=== PATIENT | female | born 1945 | race Caucasian/White ===

== ENCOUNTER 2021-08-31 13:53 | Inpatient (IN) ==
[2021-08-31 14:39] LABS: Hemoglobin 10.4 g/dL (11.5-15.4); Mean Platelet Volume 9.7 fL (9.4-12.4); Segmented Neutrophils % 75.9 %
[2021-08-31 14:40] LABS: Basophils % 0.3 %; Eosinophils # 0.3 K/mcL (0.0-0.6); Eosinophils % 2.5 %; Hematocrit 36.9 % (35.3-44.9); Immature Granulocytes % 0.7 % (0-4); Lymphocytes # 1.3 K/mcL (0.6-4.6); Lymphocytes % 12.9 %; Mean Corpuscular HGB Conc 28.2 g/dL (31.6-35.5); Mean Corpuscular Hemoglobin 27.7 pg (28.0-33.3); Mean Corpuscular Volume 98.1 fL (83.0-100.0); Monocytes # 0.8 K/mcL (0.0-1.3); Monocytes % 7.7 %; Neutrophils # 7.7 K/mcL (1.6-8.9); Platelet Count 230 K/mcL (140-400); Red Blood Count 3.76 M/mcL (3.82-4.97); Red Cell Distribution Width 13.6 % (11.5-14.5); White Blood Count 10.2 K/mcL (4.3-11.1)
[2021-08-31 14:41] LABS: VBG HCO3 26 mEq/L (21-27); VBG PCO2 79 mmHg (41-51); VBG PH 7.12 pH Units (7.32-7.42); VBG PO2 55 mmHg (25-50)
[2021-08-31 14:57] LABS: Platelet Estimate Normal (Normal)
[2021-08-31 15:02] LABS: BUN/Creatinine Ratio 17 (6-26); Blood Urea Nitrogen 28 mg/dL (8-23); Calcium 9.3 mg/dL (8.6-10.3); Carbon Dioxide 24 mEq/L (23-29); Chloride 108 mEq/L (98-107); Glucose 111 mg/dL (70-105); Osmolality,Calculated 294 (280-300); Potassium 5.1 mEq/L (3.5-5.1); Sodium 139 mEq/L (136-145); Troponin I < 0.03 ng/mL (< 0.04); eGFR For African Americans 37 (> 60); eGFR For Non-African Americans 31 (> 60)
[2021-08-31 15:53] LABS: Influenza A PCR Negative (Negative); Influenza B PCR Negative (Negative); Resp. Syncytial Virus PCR Negative (Negative)
[2021-08-31 16:21] LABS: SARS-CoV-2 by PCR (In House) Negative (Negative)
[2021-08-31] MEDS ORDERED: cefTRIAXone 1,000 MG in 0.9 % Sodium Chloride Mini Bag 100 ML IVPB ONE (16:30)
[2021-08-31] MEDS ORDERED: Azithromycin 500 MG in 0.9 % Sodium Chloride 250 ML IVPB ONE (16:30)
[2021-08-31] MEDS ORDERED: Furosemide 40 MG/4 ML VIAL IVP ONE (16:31)
[2021-08-31] MEDS ORDERED: Melatonin 3 MG TABLET PO PRN (16:32)
[2021-08-31] MEDS ORDERED: *HR* Promethazine 25 MG/ML VIAL IM PRN (16:32)
[2021-08-31] MEDS ORDERED: Naloxone 0.4 MG/ML INJ IVP PRN (16:32)
[2021-08-31] MEDS ORDERED: MOM Conc 10 ML UD.LIQ PO PRN (16:32)
[2021-08-31 17:04] LABS: Magnesium 1.5 mg/dL (1.6-2.6); Phosphorous 4.6 mg/dL (2.7-4.5)
[2021-08-31 17:13] LABS: C-Reactive Protein 45 mg/L (Less than 10)
[2021-08-31 17:31] LABS: Ferritin 185 ng/mL (10-120)
[2021-08-31] MEDS ORDERED: Perflutren Lipid Microsphere 1.3 ML in 0.9 % Sodium Chloride 8.7 ML IVP PRN (17:48)
[2021-08-31] MEDS ORDERED: Dextrose Gel 15 GM/37.5 ML TUBE PO PRN ×2 (18:01)
[2021-08-31] MEDS ORDERED: *HR* Dextrose 50 % in Water (Syg) 50 ML SYRINGE IVP PRN (18:01)
[2021-08-31] MEDS ORDERED: D5% in Water 1,000 ML IVC PRN (18:01)
[2021-08-31] MEDS ORDERED: Saline Nasal Spray 44 ML BOTTLE NS PRN (18:24)
[2021-08-31 18:43] LABS: ABG Base Excess -4 mEq/L (-2 to 3); ABG HCO3 26 mEq/L (21-27); ABG Oxygen Saturation 93 % (95-98); ABG PCO2 78 mmHg (35-45); ABG PH 7.13 pH Units (7.32-7.45); ABG PO2 89 mmHg (85-104); ABG TCO2 29 mEq/L (20-26); Blood Gas Modality NIV
[2021-08-31] MEDS ORDERED: Albumin 25% 25gram/100mL 25 GM/100 ML IV.SOLN IVPB ONE (20:00)
[2021-08-31] MEDS: Ipratropium/Albuterol Neb 3 ML IH SCH (20:45)
[2021-08-31 21:37] LABS: ABG Base Excess -4 mEq/L (-2 to 3); ABG HCO3 26 mEq/L (21-27); ABG Oxygen Saturation 86 % (95-98); ABG PCO2 69 mmHg (35-45); ABG PH 7.18 pH Units (7.32-7.45); ABG PO2 67 mmHg (85-104); ABG TCO2 28 mEq/L (20-26); Blood Gas Modality AVAPS; Blood Gas VT 500 cc
[2021-08-31] MEDS: Furosemide 20 MG/2 ML VIAL IVP SCH (23:03)
[2021-09-01] MEDS: Insulin LISPRO 300 UNITS/3 ML VIAL SUBQ SCH ×5 (00:42→23:07)
[2021-09-01] MEDS: Cefepime HCl 1,000 MG in 0.9 % Sodium Chloride Mini Bag 100 ML IVPB SCH ×2 (01:24→08:16)
[2021-09-01] MEDS: Ipratropium/Albuterol Neb 3 ML IH SCH ×7 (04:06→23:12)
[2021-09-01] MEDS: *HR* Heparin 5,000 UNIT/ML VIAL SQ SCH ×2 (05:50→17:30)
[2021-09-01 05:51] LABS: Hemoglobin 10.2 g/dL (11.5-15.4); Red Cell Distribution Width 13.3 % (11.5-14.5)
[2021-09-01 05:52] LABS: Hematocrit 34.5 % (35.3-44.9); Mean Corpuscular HGB Conc 29.6 g/dL (31.6-35.5); Mean Corpuscular Hemoglobin 28.2 pg (28.0-33.3); Mean Corpuscular Volume 95.3 fL (83.0-100.0); Mean Platelet Volume 10.3 fL (9.4-12.4); Platelet Count 208 K/mcL (140-400); Red Blood Count 3.62 M/mcL (3.82-4.97); White Blood Count 9.7 K/mcL (4.3-11.1)
[2021-09-01 06:08] LABS: Calcium 9.4 mg/dL (8.6-10.3); Potassium 5.1 mEq/L (3.5-5.1)
[2021-09-01] MEDS: Furosemide 20 MG/2 ML VIAL IVP SCH ×2 (08:16→19:27)
[2021-09-01 11:41] LABS: ABG Base Excess -3 mEq/L (-2 to 3); ABG HCO3 25 mEq/L (21-27); ABG Oxygen Saturation 92 % (95-98); ABG PCO2 56 mmHg (35-45); ABG PH 7.26 pH Units (7.32-7.45); ABG PO2 73 mmHg (85-104); ABG TCO2 27 mEq/L (20-26); Blood Gas VT 500 cc
[2021-09-01] MEDS ORDERED: Azithromycin 500 MG in 0.9 % Sodium Chloride 250 ML IVPB SCH (18:00)
[2021-09-01] MEDS: Acetaminophen 325 MG TABLET PO PRN (19:32)
[2021-09-01] MEDS ORDERED: Menthol 1 EACH LOZENGE PO PRN (19:45)
[2021-09-01] MEDS ORDERED: Saliva Stimulant 44.3ml BOTTLE PO PRN (19:45)
[2021-09-02 03:48] LABS: Hematocrit 33.1 % (35.3-44.9); Hemoglobin 9.7 g/dL (11.5-15.4); Mean Corpuscular HGB Conc 29.3 g/dL (31.6-35.5); Mean Corpuscular Volume 95.4 fL (83.0-100.0); Mean Platelet Volume 9.9 fL (9.4-12.4); Platelet Count 218 K/mcL (140-400); Red Blood Count 3.47 M/mcL (3.82-4.97); Red Cell Distribution Width 13.3 % (11.5-14.5); White Blood Count 9.8 K/mcL (4.3-11.1)
[2021-09-02] MEDS: Ipratropium/Albuterol Neb 3 ML IH SCH ×6 (03:48→23:27)
[2021-09-02 04:05] LABS: Calcium 8.8 mg/dL (8.6-10.3); Potassium 4.3 mEq/L (3.5-5.1)
[2021-09-02] MEDS: *HR* Heparin 5,000 UNIT/ML VIAL SQ SCH ×2 (05:40→16:59)
[2021-09-02] MEDS: Insulin LISPRO 300 UNITS/3 ML VIAL SUBQ SCH ×3 (05:40→16:55)
[2021-09-02] MEDS: Furosemide 20 MG/2 ML VIAL IVP SCH ×2 (08:07→20:39)
[2021-09-02 09:13] LABS: Magnesium 1.6 mg/dL (1.6-2.6); Phosphorous 3.2 mg/dL (2.7-4.5)
[2021-09-02] MEDS: Acetaminophen 325 MG TABLET PO PRN ×2 (11:37→23:28)
[2021-09-02 15:08] LABS: Bilirubin,Urine Negative (Negative); Blood,Urine Negative (Negative); Clarity,Urine Clear (Clear); Color,Urine Colorless (Yellow); Glucose,Urine (UA) Normal (Normal); Ketones,Urine Negative (Negative); Leukocyte Esterase,Urine Negative (Negative); Nitrite,Urine Negative (Negative); Protein,Urine Trace mg/dL (Neg-Trace); Specific Gravity,Urine 1.008 (1.010-1.025); Urobilinogen,Urine Normal (Normal)
[2021-09-02 15:20] LABS: Sodium, Urine 128.2 mEq/L
[2021-09-02] MEDS: carvediloL 6.25 MG TABLET PO SCH (16:57)
[2021-09-03] MEDS: Insulin LISPRO 300 UNITS/3 ML VIAL SUBQ SCH ×4 (00:21→17:13)
[2021-09-03] MEDS: Ipratropium/Albuterol Neb 3 ML IH SCH ×5 (04:08→20:47)
[2021-09-03] MEDS: *HR* Heparin 5,000 UNIT/ML VIAL SQ SCH ×2 (05:06→16:45)
[2021-09-03 05:30] LABS: Hematocrit 31.5 % (35.3-44.9); Hemoglobin 9.3 g/dL (11.5-15.4); Mean Corpuscular HGB Conc 29.5 g/dL (31.6-35.5); Mean Corpuscular Hemoglobin 27.6 pg (28.0-33.3); Mean Corpuscular Volume 93.5 fL (83.0-100.0); Mean Platelet Volume 9.7 fL (9.4-12.4); Platelet Count 234 K/mcL (140-400); Red Blood Count 3.37 M/mcL (3.82-4.97); Red Cell Distribution Width 13.3 % (11.5-14.5); White Blood Count 8.8 K/mcL (4.3-11.1)
[2021-09-03 05:50] LABS: Calcium 8.8 mg/dL (8.6-10.3); Potassium 4.1 mEq/L (3.5-5.1)
[2021-09-03] MEDS: carvediloL 6.25 MG TABLET PO SCH ×2 (07:22→16:44)
[2021-09-03] MEDS: Furosemide 20 MG/2 ML VIAL IVP SCH ×2 (07:23→21:11)
[2021-09-03 16:01] LABS: Magnesium 1.4 mg/dL (1.6-2.6); Phosphorous 3.2 mg/dL (2.7-4.5)
[2021-09-03] MEDS: Acetaminophen 325 MG TABLET PO PRN (21:01)
[2021-09-04] MEDS: Ipratropium/Albuterol Neb 3 ML IH SCH ×6 (00:07→20:44)
[2021-09-04] MEDS: Insulin LISPRO 300 UNITS/3 ML VIAL SUBQ SCH ×6 (02:29→20:41)
[2021-09-04] MEDS: *HR* Heparin 5,000 UNIT/ML VIAL SQ SCH ×2 (03:27→22:29)
[2021-09-04] MEDS: carvediloL 6.25 MG TABLET PO SCH ×2 (08:46→16:29)
[2021-09-04] MEDS ORDERED: SERTRALINE HCL PO SCH (09:00)
[2021-09-04] MEDS: Furosemide 20 MG/2 ML VIAL IVP SCH ×2 (10:59→20:41)
[2021-09-04 11:16] LABS: Hematocrit 31.8 % (35.3-44.9); Hemoglobin 9.6 g/dL (11.5-15.4); Mean Corpuscular HGB Conc 30.2 g/dL (31.6-35.5); Mean Corpuscular Hemoglobin 27.7 pg (28.0-33.3); Mean Corpuscular Volume 91.9 fL (83.0-100.0); Mean Platelet Volume 9.8 fL (9.4-12.4); Platelet Count 268 K/mcL (140-400); Red Blood Count 3.46 M/mcL (3.82-4.97); Red Cell Distribution Width 13.1 % (11.5-14.5); White Blood Count 7.9 K/mcL (4.3-11.1)
[2021-09-04 11:36] LABS: Magnesium 1.9 mg/dL (1.6-2.6); Potassium 3.9 mEq/L (3.5-5.1)
[2021-09-04] MEDS: Acetaminophen 325 MG TABLET PO PRN (16:29)
[2021-09-04] MEDS: Budesonide/Formoterol 160/4.5 1 PUFF INH IH SCH (20:44)
[2021-09-05] MEDS: Ipratropium/Albuterol Neb 3 ML IH SCH ×7 (00:10→23:07)
[2021-09-05] MEDS: *HR* Heparin 5,000 UNIT/ML VIAL SQ SCH ×3 (05:19→21:31)
[2021-09-05] MEDS: Acetaminophen 325 MG TABLET PO PRN ×2 (05:20→15:00)
[2021-09-05 05:57] LABS: Hematocrit 30.6 % (35.3-44.9); Hemoglobin 9.4 g/dL (11.5-15.4); Mean Corpuscular HGB Conc 30.7 g/dL (31.6-35.5); Mean Corpuscular Hemoglobin 28.1 pg (28.0-33.3); Mean Corpuscular Volume 91.6 fL (83.0-100.0); Mean Platelet Volume 9.8 fL (9.4-12.4); Platelet Count 281 K/mcL (140-400); Red Blood Count 3.34 M/mcL (3.82-4.97); Red Cell Distribution Width 13.1 % (11.5-14.5); White Blood Count 7.6 K/mcL (4.3-11.1)
[2021-09-05 06:19] LABS: Magnesium 1.5 mg/dL (1.6-2.6); Potassium 3.8 mEq/L (3.5-5.1)
[2021-09-05] MEDS: Budesonide/Formoterol 160/4.5 1 PUFF INH IH SCH ×2 (07:31→19:56)
[2021-09-05] MEDS: Insulin LISPRO 300 UNITS/3 ML VIAL SUBQ SCH ×4 (08:05→20:19)
[2021-09-05] MEDS: carvediloL 6.25 MG TABLET PO SCH ×2 (08:05→17:55)
[2021-09-05] MEDS: Furosemide 20 MG/2 ML VIAL IVP SCH ×2 (08:06→20:18)
[2021-09-05 19:19] LABS: Influenza A PCR Negative (Negative); Influenza B PCR Negative (Negative); Resp. Syncytial Virus PCR Negative (Negative)
[2021-09-05 19:28] LABS: SARS-CoV-2 by PCR (In House) Negative (Negative)
[2021-09-05 19:59] VITALS: O2SAT 94
[2021-09-05 20:17] VITALS: BP 171/68; PULSE 91; TEMP 98.5
== END 2021-09-06 00:50 | DRG 291 ==
LOC: EMEROOARM 13:53 → 2NENU 13:53 → SUATTDRO 19:57 → 2NENU 20:30
PROVIDERS: ADMIT Internal Medicine; ATTEND Internal Medicine